=== PATIENT | male | born 1950 | race Caucasian/White ===

== ENCOUNTER → 2020-03-26 12:00 | Outpatient (CLI) | payer OTHER, SELFPAY ==
[2020-03-26 13:09] LABS: Add Manual Diff / Slide Review NO; Basophils Absolute Auto 100 /uL (0-100); Basophils Percent Auto 1.2 % (0-2); Eosinophils Absolute Auto 200 /uL (0-450); Hematocrit 39.5 % (41-53); Hemoglobin 13.3 g/dL (13.5-17.5); Lymphocytes Absolute Auto 1200 /uL (1100-4500); Mean Corpuscular HGB Conc 33.7 % (30-36); Mean Corpuscular Hemoglobin 31.7 PG (26-34); Monocytes Absolute Auto 600 /uL (0-900); Monocytes Percent Auto 11.9 % (3-14); Neutrophils Absolute Auto 2500 /uL (1500-7000); Neutrophils Percent Auto 54.9 % (50-75); Platelet Count 165 X10^3/uL (150-400); Red Cell Distribution Width 13.6 % (11.6-14.8); White Blood Cell Count 4.6 X10^3/uL (4.5-11.0)
[2020-03-26 13:26] LABS: Carbon Dioxide 27 mmol/L (22-32); Chloride 109 mmol/L (98-107); HEMOLYSIS < 15 (0-50); Potassium 4.4 mmol/L (3.4-5.1); Sodium 141 mmol/L (137-145)
== END ==
PROVIDERS: Referring Provider Orthopaedic Surgery; Visit Provider Orthopaedic Surgery
DX: Z01.818 Encounter for other preprocedural examination (principal); Z01.812 Encounter for preprocedural laboratory examination
CPT/HCPCS: 36415; 80051; 85025; 93005

== ENCOUNTER → 2020-04-15 09:45 | Outpatient (CLI) | payer OTHER, SELFPAY ==
[2020-04-16 12:31] LABS: COVID19 Sendout Not Detected (Not Detect)
== END ==
PROVIDERS: Referring Provider Orthopaedic Surgery; Visit Provider Physician Assistant
DX: Z11.59 Encounter for screening for other viral diseases (principal)
CPT/HCPCS: 87635

== ENCOUNTER 2020-04-19 15:29 | Observation (INO) | payer OTHER, SELFPAY ==
[2020-04-06] MEDS: IBUPROFEN 400 MG TABLET PO (18:00)
[2020-04-11 08:45] VITALS: BMI 38.9
[2020-04-18] VITALS (14 sets, daily range): BP systolic 93–173; BP diastolic 57–99; PULSE 57–76; RESP 12–18; TEMP 36.1–37.5; O2SAT 94–99; BMI 37.8
--- NOTE | 2020-04-18 06:00 | DI.RAD.S_ITS ---
PROCEDURE: XR KNEE LT 1TO2V INDICATIONS: RIGHT TOTAL KNEE TECHNIQUE: To view(s) of the knee acquired. COMPARISON: [facility], CR, XR KNEE ARTHRITIC SERIES BI, 11/10/2018, 16:02. FINDINGS: Bones: Patient is status post knee joint arthroplasty. Hardware components are in expected positions. Visualized bony structures are intact. Soft tissues: Overlying postoperative changes are noted. IMPRESSION: Expected postsurgical change for right knee arthroplasty. Dictated by: Ifrah Wayne MD, PhD on 04/18/2020 at 17:00 Approved by: Ifrah Wayne MD, PhD on 04/18/2020 at 17:00
[2020-04-18] MEDS: CELECOXIB 200 MG CAPSULE PO (06:46)
[2020-04-18] MEDS: ACETAMINOPHEN 325 MG TABLET 975 MG PO (06:46)
[2020-04-18] MEDS: PREGABALIN 75 MG CAPSULE PO (06:46)
[2020-04-18] MEDS: LACTATED RINGERS 1,000 ML 42 ML IV ×2 (07:35→09:08)
--- NOTE | 2020-04-18 07:35 | P.OP_ITS ---
Operative Date/Time/Diagnoses Date of procedure: 04/18/20 Time of procedure: 10:02 Pre-op diagnosis: Right knee osteoarthritis Post-op diagnosis: same Procedure & Clinicians Procedure: Right total knee arthroplasty Same procedure as scheduled: Yes Indications: The patient presents today for total knee arthroplasty after failure of conservative treatment. The nature of the procedure including the risks and benefits, alternatives, postoperative course and expected outcome were discussed and all questions answered. Consent was obtained. Operative site confirmed and marked. Surgeon: Cesar Ramirez Air Purifier Servicer: Mumtaz Terry Anesthesia Type: General and Local Operative Notes Findings: A +0 femoral cut was made. The initial femoral cut was 10 mm off the less affected medial side. The knee was still tight in flexion and extension so no other 2 mm of bone was cut. This gave nice balance with just slight tightness laterally. Lateral tightness was corrected by releasing the lateral capsule in a pie crust technique with a 15 blade. The knee went into full extension and flexed beyond 120? with good mediolateral stability. Despite confirming the cut multiple times with the cutting guide the femoral cut was not perfect. The final prosthesis did have a solid fit. The knee was held in extension with compression until the cement had fully cured. Closure Type: primary Specimen(s): none sent Prosthetic devices, grafts, tissues, transplants, or devices: Aguayo and Nephew Sruthi BCS: 5 femoral component, 5 tibial component, 9 mm BCS polyethylene tray and 32 mm round patella Applied: implant(s) Estimated Blood Loss (mL): 5 Blood products transfused: none Tourniquet time (min): 85 Procedure in detail: The patient was taken to the operative suite and placed under anesthesia. The patient was given prophylactic antibiotics prior to surgery. The patient was also given tranexamic acid, 1 g, just prior to surgery for postoperative hemostasis. The lateral knee was prepped and the joint injected with 20 mL of 1% Lidocaine with epinephrine. The knee was then prepped and draped in usual sterile fashion. The leg was exsanguinated with an Esmarch dressing and the tourniquet raised to 275 torr. A 15 cm anterior incision was made. Next a medial trivector arthrotomy was made. The extensor mechanism was marked to ensure accurate repair. Initial exposing dissection was carried out medially and laterally. The knee was then flexed and the intramedullary femoral guide diego placed. The distal femoral cut was made in 6? of valgus at the +0 position. The femoral size was measured and the appropriate cutting block was then placed and the anterior, posterior and chamfer cuts made. The intramedullary tibial alignment diego was then placed. The guide was set to remove approximately 10 mm from the less affected medial side. The proximal tibial cut was then made with an oscillating saw. All meniscus and bony debris was then removed. Posterior femoral osteophytes removed with a curved osteotome. Flexion extension gaps were checked. The knee was tight in both flexion extension. Another 2 mm of tibia was cut which corrected this. There was still some slight tightness laterally which was corrected by releasing the lateral capsule in a pie crust technique with a 15 blade.. The soft tissues were then injected with a combination of 20 mL of half percent Marcaine with epinephrine and 20 mL of Exparel. The trial components were then placed. The knee was then extended and the patellar thickness was measured and a cut made removing approximately 9 mm of bone. The patella was then sized and drilled. Some excess lateral bone was excised and the patellofemoral ligament released. The knee went into full extension and flexion beyond 120?. There was excellent medial-lateral balance throughout motion. Patellar tracking was excellent. The trial components were removed and the knee was cleansed with Pulsavac irrigation and dried. The final components were cemented with high viscosity vacuum mixed bone cement with antibiotics. The joint was filled with a dilute Betadine solution. The knee was held in extension and the patellar clamped until the cement was adequately cured. The knee was then irrigated. The extensor mechanism was closed with 5 interrupted #1 Vicryl sutures and a running Quill suture at approximately 90 degrees of flexion. The joint was then injected with a combination of 1 g of tranexamic acid and 20 mL of quarter percent Marcaine with epinephrine. The subcutaneous tissue was closed with 2 0 Vicryl. The skin was closed with absorbable subcuticular sutures and surgical adhesive. An Aquacel dressing and Ajay wrap were then applied. The patient tolerated the procedure well and was returned to recovery room in good condition. Complications: none Post-operative Condition: stable Disposition: PACU Plan for aftercare: [facility] Protocol.
--- NOTE | 2020-04-18 07:35 | PM.PREOP ---
Pre-operative Note COVID-19 COVID-19 status: Negative Result date/Date tested (Pos, Neg/Pending): 04/16/20 Interval Note History & Physical reviewed/Exam performed by Physician: Yes Changes to H&P: No
[2020-04-18] MEDS: fentaNYL 100 MCG/2 ML INJ 50 MCG IV ×2 (07:41→07:43)
[2020-04-18] MEDS: MIDAZOLAM 2 MG/2 ML VIAL IV ×2 (07:41→07:43)
[2020-04-18] MEDS: CEFAZOLIN 2 GM/100 ML FROZ.PIGGY IV (07:50)
--- NOTE | 2020-04-18 07:55 | SUR.PREOP ---
Block start time [0741] . Monitoring initiated and maintained throughout procedure. Oxygen and medications given per anesthesiologist instructions. Patient remained stable throughout procedure, no adverse reactions noted. Block end time [0746]. Pt at bedside throughout procedure. pt resting with eyes closed, easily arousable to voice when spoken to. pt transferred into the OR by QUALITY CONTROL INSPECTOR HEADING at completion of block, VSS.
--- NOTE | 2020-04-18 08:28 | SUR.OPER ---
Supine on padded OR bed. Pillow under head, arms secured on padded armboards <90 degree abduction. Safety belt across torso. Non-operative leg secured with tape over blanket over lower leg. Operative leg secured in DeMayo/Gonzalo positioner. Foam padded brace at thigh of operative leg.
[2020-04-18] MEDS: LIDOCAINE 1% W/EPI 20 ML INJ (08:36)
[2020-04-18] MEDS: BUPIVACAINE 0.25% W/ EPI (PF) 20 ML, TRANEXAMIC ACID 1,000 MG, SODIUM CHLORIDE 0.9% 10 ML INJ (08:37)
[2020-04-18] MEDS: BUPIVACAINE 0.25% W/ EPI (PF) 40 ML, BUPIVACAINE LIPOSOME 266 MG, SODIUM CHLORIDE 0.9% ... INJ (08:39)
--- NOTE | 2020-04-18 10:15 | SUR.PHASEI ---
Received to PACU after spinal anesthesia. Report received from MOON Byrd and anesthesiologist.
[2020-04-18] MEDS: LACTATED RINGERS 1,000 ML 100 ML IV ×2 (10:59→20:49)
[2020-04-18] MEDS: OXYCODONE IR 5 MG TABLET PO ×4 (11:06→22:32)
--- NOTE | 2020-04-18 11:34 | SUR.PHASEI ---
Pt transferred to [facility]. Received in room by MOON Greene. Bedside handoff done.
--- NOTE | 2020-04-18 14:40 | PT.IIE ---
Current Diagnoses Unilateral primary osteoarthritis, left knee (04/18/20) Surgery Performed Operation Date: 04/18/20 07:45 Actual Procedures p Total Knee Arthroplasty(Right) - Cesar Ramirez MD Surgical History (Last Updated 04/11/20 @ 09:22 by Darlene Beebe, RN) History of colonoscopy (Acute) History of esophagogastroduodenoscopy (EGD) (Acute) No history of previous surgery (Acute) Medical History (Last Updated 04/11/20 @ 09:22 by Darlene Beebe RN) Caputo's esophagus (Acute) Easy bruisability (Acute) GERD (gastroesophageal reflux disease) (Acute) Gout (Acute) Hearing impaired (Acute) HTN (hypertension) (Acute) JIA on CPAP (Acute) Psoriasis (Acute) Physical Therapy Inpatient Evaluation/Re-Eval M1 PT/OT-IP Prior Functional Status Start: 04/18/20 15:31 Freq: NEEDED Status: Active Protocol: Document 04/18/20 14:40 AB (Rec: 04/18/20 15:43 AB [id number]) Medical Review Prior Functional Status Medical History Reviewed Yes Communication able to make needs known Mobility and Gait pt stated that he is independent with all mobilities and ambulation without AD Social History Household Members spouse Living Arrangements House Number of Floors (Floors) Two Floors Number of Stairs To Enter/Railing? 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 PT-IP Current Condition Start: 04/18/20 15:31 Freq: NEEDED Status: Active Protocol: Document 04/18/20 14:40 AB (Rec: 04/18/20 15:43 AB [email or web address]) Physical Therapy Current Condition Current Condition Evaluation Date 04/18/20 Treatment Diagnosis s/p R TKA; difficulty in walking Onset Date 04/18/20 Weight Bearing Status Weight Bearing Status Weight Bear as Tolerated Allowed Weight Bearing Amount (enter % WBAT RLE or #) (%) M3 PT-IP Subjective Start: 04/18/20 15:31 Freq: NEEDED Status: Active Protocol: Document 04/18/20 14:40 AB (Rec: 04/18/20 15:43 [email or web address]) Subjective Physical Therapy Visit Type Type Initial Evaluation Visit Start Time 14:40 Visit Stop Time 15:27 Total Visit Minutes 47 Number of REFLECTOR DRILLER AND DEBURRER Visits 0 Physical Therapy Visit Comments Patient Comments pt is agreeable to do PT Therapy Pain Assessment Pain When Pain Assessed At Rest Pain Present Pain Present Pain Reported Location Right Knee Intensity 3 Scale Used Numeric (0 - 10) Pain Management Techniques Apply Cold,Modification of Treatment,Re-positioning, Timing of Activity with Medications M4 PT-IP Mobility and Gait Start: 04/18/20 15:31 Freq: NEEDED Status: Active Protocol: Document 04/18/20 14:40 AB (Rec: 04/18/20 15:43 [email or web address]) PT-Bed Mobility Assessment Supine to Sit Supine to Sit Standby Assistance,Bedrails Sit to Supine Sit to Supine Standby Assistance Scooting Scooting to Edge of Bed Standby Assistance PT-Transfer Assessment Sit to and From Stand Sit to and from Stand Minimal Assistance,1 Person Assistance,Use of Upper Extremities Equipment Transfer Assistive Device Gait Belt,Front Wheeled Walker Orthotic/Prosthetic Devices or Brace: No Comments Mobility Comments BP in supine: 141/78. completed supine to sit SBA with use of bed rail. pt was able to sit on EOB SBA. completed sit to stand min A and cues. ambulated in room ~ 40 ft using FWW min to mod A and cues for quads activation on RLE. slight R knee buckling during ambulation. pt requested to go back to bed afterwards. completed sit to supine SBA. positioned in bed. call light and table placed within reach. Gait Assessment Gait Gait Assistance Required: Minimum Assistance,Moderate Assistance Distance (Feet) 40 Able to Maintain Weight Bearing Status Yes During Gait Assistive Devices Assistive Device Gait Belt,Front Wheeled Walker Orthotic/Prosthetic Devices or Brace: No Gait Deviations General Gait Pattern Antalgic,Decreased Stride Length,Decreased Feet Clearance,Step-to Gait Factors Limiting Gait Function Factors Limiting Gait Function Decreased Activity Tolerance, Decreased Strength,Limited Range of Motion,Pain,Poor Balance,Poor Safety Awareness PT-Balance Assessment Sitting Balance and Reactions Static Sitting Balance Ability Good Dynamic Sitting Balance Ability Good Standing Balance and Reactions Static Standing Balance Ability Fair Dynamic Standing Balance Ability Fair Device Used FWW M5 PT-IP Objective Assessments Start: 04/18/20 15:31 Freq: NEEDED Status: Active Protocol: Document 04/18/20 14:40 AB (Rec: 04/18/20 15:43 AB [id number]) Orientation Orientation/Cognition Level of Alertness Alert Orientation Name,Age,Birthday,Month,Date, Year,Day of Week,Place, Situation Language Function Ability No Deficits Noted Safety Awareness Understands Safety Issues Memory Description No Deficits Noted Gross Range of Motion Lower Extremity ROM Impairments R knee flexion: ~ 50 deg R knee extension: 10 deg less to neutral Strength Lower Extremity Strength Assessment Right Impaired Hip 4-/5 Knee 3+/5 Coordination Assessment Gross Coordination Gross Coordination WNL Sensation Assessment Sensation Gross Sensation WNL Muscle Tone Muscle Tone WNL Yes M6 PT-IP Treatment Start: 04/18/20 15:31 Freq: NEEDED Status: Active Protocol: Document 04/18/20 14:40 AB (Rec: 04/18/20 15:43 AB [email or web address]) Physical Therapy Treatment Exercises Exercises Heel Slides Education Education Provided Precautions,Weight Bearing Status,Post-Op Packet,Safety M7 PT-IP Assessment and Plan Start: 04/18/20 15:31 Freq: NEEDED Status: Active Protocol: Document 04/18/20 14:40 AB (Rec: 04/18/20 15:43 AB [email or web address]) PT Summary Assessment and Plan Potential Rehabilitation Potential Good Status of Condition at Evaluation Stable Summary Impairments Pain,ROM,Strength,Balance,Bed Mobility,Transfers,Gait, Activity Tolerance Assessment Summary pt requiring min to mod A with ambulation using FWW and with slight R knee buckling during ambulation. pt plans to go home with spouse to assist. will conduct caregiver training when appropriate. will also have to complete stair climbing training prior to d/c. pt stated that he is set up for outpt PT. Goals Bed Mobility Goal Standby Assistance Transfer Goal Standby Assistance,Front Wheeled Walker Gait Goal Standby Assistance,Front Wheel Walker Gait Distance 150 Other Goals up/down 7 steps L rail ascending + 7 steps B rails SBA Days to Meet Goals 5 Frequency of Treatment Frequency Of Treatment Twice a Day Treatment Plan Physical Therapy Treatment Plan Bed Mobility Training,Transfer Training,Gait Training, Therapeutic Exercise,Balance Retraining,Post Op Education, Discharge Planning,Hot or Cold Pack,Neuromuscular Re-ed, Coordination Retraining,Manual Therapy Other Recommendations and Next Treatment ambulation, caregiver training Focus , stair climbing training Recommendations To Nursing Amount of Assist Needed 1 Person Assist Discharge Recommendations PT Discharge Recommendations Home with Assistance, Outpatient PT Transportation Needs at Discharge Private Vehicle
[2020-04-18] MEDS: ACETAMINOPHEN 325 MG TABLET 650 MG PO ×2 (15:17→20:45)
[2020-04-18] MEDS: IBUPROFEN 400 MG TABLET PO ×2 (15:18→21:02)
[2020-04-18] MEDS: CEFAZOLIN VIAL 3 GM in SODIUM CHLORIDE 0.9% 100 ML 200 ML IV (19:19)
[2020-04-18] MEDS: DOCUSATE 100 MG CAPSULE PO (20:45)
[2020-04-18] MEDS: ASPIRIN EC 81 MG TABLET PO (20:58)
--- NOTE | 2020-04-18 21:24 | PC.NURSE ---
Pt stable post op course. Lungs clear, SpO2 97% RA Surgical right knee dsg CDI CMS ++ MEd x 1 tjis shift for discomfort w/good relief. Using Cpap IVF LR infusing into left wrist @ 100cc/hr via pump w/o incidence. Call light w/in reach, bed alarm on for pt safety. Continue w/plan of care.
[2020-04-19] VITALS (7 sets, daily range): BP systolic 129–155; BP diastolic 59–89; PULSE 75–84; RESP 12–19; TEMP 36.9–38.3; O2SAT 93–96
[2020-04-19] MEDS: IBUPROFEN 400 MG TABLET PO ×5 (00:26→21:51)
[2020-04-19] MEDS: CEFAZOLIN VIAL 3 GM in SODIUM CHLORIDE 0.9% 100 ML 200 ML IV (00:27)
[2020-04-19] MEDS: OXYCODONE IR 5 MG TABLET PO (02:22)
[2020-04-19] MEDS: OXYCODONE IR 10 MG TABLET PO ×3 (05:12→12:07)
[2020-04-19 05:43] LABS: Hematocrit 38.1 % (41-53); Hemoglobin 12.4 g/dL (13.5-17.5)
--- NOTE | 2020-04-19 07:48 | PM.PN.1 ---
Subjective Subjective Date Patient Seen: 04/19/20 Time Patient Seen: 07:48 Interval history: Patient is POD#1 s/p R TKA with Dr. Ramirez. Pain has been controlled with Oxycodone. He has mobilized about the room with PT. Does have stairs to enter home. His is available as professional nursing assistant. Voiding appropriately. Tolerating a diet. No complaints. Exam Vital Signs (past 8 hours): - 04/19/20 00:30 04/19/20 06:00 04/19/20 06:37 Temperature 99.0 F 100.9 F H 98.8 F Pulse Rate 75 75 Respiratory Rate 18 12 Blood Pressure 152/89 H 155/72 H Pulse Oximetry 96 96 Oxygen Delivery Method Room Air,CPAP Oxygen Flow Rate 0 Narrative Exam Narrative: 69 year old male resting in bed alert and oriented. Using CPAP. Dressing in place over right knee is CDI. 5/5 distal extremity. Calves are soft, nontender. Palpable pedal pulse. Objective Labs Result Diagrams: 04/19/20 05:35 Labs: Laboratory Results - last 24 hr 04/19/20 05:35 Hgb 12.4 L Hct 38.1 L Assessment & Plan Assessment & Plan narrative: Patient doing well postoperatively. Continue to work with PT today, complete stair training. ASA 81mg BID and SCDs for DVT prophylaxis. Continue present pain control, script for Oxycodone provided for discharge. Discharge to home later today pending PT.
[2020-04-19] MEDS: ACETAMINOPHEN 325 MG TABLET 650 MG PO ×3 (09:00→21:52)
[2020-04-19] MEDS: DOCUSATE 100 MG CAPSULE PO ×2 (09:01→21:52)
[2020-04-19] MEDS: PANTOPRAZOLE 40 MG TABLET PO (09:01)
[2020-04-19] MEDS: ASPIRIN EC 81 MG TABLET PO ×2 (09:01→21:52)
[2020-04-19] MEDS: LOSARTAN 50 MG TABLET 100 MG PO (09:01)
[2020-04-19] MEDS: AMLODIPINE 5 MG TABLET PO (09:01)
[2020-04-19] MEDS: allopurinoL 100 MG TABLET 200 MG PO (09:02)
[2020-04-19] MEDS: hydrOXYzine pamoate 25 MG CAPSULE PO (10:56)
--- NOTE | 2020-04-19 10:57 | CM.DANOTE ---
DCP: Case received, EMR reviewed and met with patient. Introduced self and role. Was able to obtain some information from patient regarding his baseline activity status prior to surgery, and living situation. DCP assessment completed with information currently available. Patient is a 69 year old male who admitted yesterday morning to the care of the orthopedic team. PCP: Patient could not remember his name, but does have one. Payer: confirmed: [employer]. Patient came to the hospital for a surgical procedure. He had left total knee arthroplasty. Patient has history of osteoarthritis. Met with patient in his room. He was sitting in his chair next to his bed with his leg elevated. Stated he is supposed to go home today, but is concerned, for he is having increased pain. His , Delmy, is on her way here. Patient resides in [place] with his spouse, Delmy, who will be assisting him when he goes home. Patient is independent at baseline, has been driving. He does have a PCP in his area, but was unsure of his name. P: DCP to continue to follow. He does have discharge orders for today, but also having increased pain. The plan is for home with outpatient P.T. He should be working with P.T. again. Duyen Sterling RN/Bingo Usher
--- NOTE | 2020-04-19 12:03 | PT.IPTN ---
Current Diagnoses Unilateral primary osteoarthritis, left knee (04/18/20) Surgery Performed Operation Date: 04/18/20 07:45 Actual Procedures p Total Knee Arthroplasty(Right) - Cesar Ramirez MD Physical Therapy Treatment Note M2 PT-IP Current Condition Start: 04/18/20 15:31 Freq: NEEDED Status: Active Protocol: Document 04/18/20 14:40 AB (Rec: 04/18/20 15:43 AB [email or web address]) Physical Therapy Current Condition Current Condition Evaluation Date 04/18/20 Treatment Diagnosis s/p R TKA; difficulty in walking Onset Date 04/18/20 Weight Bearing Status Weight Bearing Status Weight Bear as Tolerated Allowed Weight Bearing Amount (enter % WBAT RLE or #) (%) M3 PT-IP Subjective Start: 04/18/20 15:31 Freq: NEEDED Status: Active Protocol: Document 04/19/20 11:48 KS (Rec: 04/19/20 12:54 KS [id number]) Subjective Physical Therapy Visit Type Type Treatment Note Visit Start Time 11:48 Visit Stop Time 12:03 Total Visit Minutes 15 Number of ORACLE FINANCIAL APPLICATION DEVELOPER Visits 1 Physical Therapy Visit Comments Patient Comments Pts present during treatment. Therapy Pain Assessment Pain When Pain Assessed At Rest Pain Present Pain Present Pain Reported Location Right Knee Scale Used not quantified Pain Behaviors Calling Out,Facial Grimacing, Guarding,Holding Area, Restlessness,Wincing Pain Management Techniques Apply Cold,Elevation, Modification of Treatment,Re- positioning M4 PT-IP Mobility and Gait Start: 04/18/20 15:31 Freq: NEEDED Status: Active Protocol: Document 04/19/20 11:48 KS (Rec: 04/19/20 12:54 KS [id number]) PT-Transfer Assessment Comments Mobility Comments Pt reclined in chair w/ in room upon arrival from therapy. Reviewed LE strengthening exercises including ankle pumps, quad sets, and heel slides which pt states he has been trying to complete in bed. Upon lowering chair from reclined position, pt called out in pain w/ knee flexion shouting put it back up! referring to his RLE in reclined position. Pt repositioned comfortably w/ pillow beneath knee. Provided pt education on positioning, weight bearing, and ROM. Pt stated he is unable to stand or walk at this time d/t pain. Gait Assessment Comments Gait Comments Pt unable to tolerate at this time d/t pain. M5 PT-IP Objective Assessments Start: 04/18/20 15:31 Freq: NEEDED Status: Active Protocol: Document 04/18/20 14:40 AB (Rec: 04/18/20 15:43 AB [email or web address]) Orientation Orientation/Cognition Level of Alertness Alert Orientation Name,Age,Birthday,Month,Date, Year,Day of Week,Place, Situation Language Function Ability No Deficits Noted Safety Awareness Understands Safety Issues Memory Description No Deficits Noted Gross Range of Motion Lower Extremity ROM Impairments R knee flexion: ~ 50 deg R knee extension: 10 deg less to neutral Strength Lower Extremity Strength Assessment Right Impaired Hip 4-/5 Knee 3+/5 Coordination Assessment Gross Coordination Gross Coordination WNL Sensation Assessment Sensation Gross Sensation WNL Muscle Tone Muscle Tone WNL Yes M6 PT-IP Treatment Start: 04/18/20 15:31 Freq: NEEDED Status: Active Protocol: Document 04/19/20 11:48 KS (Rec: 04/19/20 12:54 KS [id number]) Physical Therapy Treatment Exercises Exercises Ankle Pumps,Gluteal Sets,Quad Sets,Heel Slides Education Education Provided Precautions,Weight Bearing Status,Post-Op Packet,Safety Other Treatments Other Treatment Performed Provided pt education on exercises, weight bearing, ROM , and positioning. M7 PT-IP Assessment and Plan Start: 04/18/20 15:31 Freq: NEEDED Status: Active Protocol: Document 04/19/20 11:48 KS (Rec: 04/19/20 12:54 KS [id number]) PT Summary Assessment and Plan Summary Impairments Pain,ROM,Strength,Balance,Bed Mobility,Transfers,Gait, Activity Tolerance Assessment Summary Pt limited by high amount of pain and only able to tolerate review of LE strengthening exercises. Pt called out in pain when RLE was slowly lowered from reclined position and immediately requested to have his RLE elevated again. Pt stated he is unable to stand or ambulate at this time . Provided pt education, spoke w/ RN regarding meds. Will try again this PM after pain meds. Pt will need to complete 4 steps w/ 1 rail and caregiver training prior to d/ c. Goals Bed Mobility Goal Standby Assistance Transfer Goal Standby Assistance,Front Wheeled Walker Gait Goal Standby Assistance,Front Wheel Walker Gait Distance 150 Other Goals up/down 7 steps L rail ascending + 7 steps B rails SBA Days to Meet Goals 5 Frequency of Treatment Frequency Of Treatment Twice a Day Treatment Plan Physical Therapy Treatment Plan Bed Mobility Training,Transfer Training,Gait Training, Therapeutic Exercise,Balance Retraining,Post Op Education, Discharge Planning,Hot or Cold Pack,Neuromuscular Re-ed, Coordination Retraining,Manual Therapy Other Recommendations and Next Treatment ambulation, caregiver training Focus , stair climbing training Recommendations To Nursing Amount of Assist Needed 1 Person Assist Discharge Recommendations PT Discharge Recommendations Home with Assistance,SNF Rehab ,Outpatient PT Transportation Needs at Discharge Private Vehicle
--- NOTE | 2020-04-19 13:19 | PT.IPTN ---
Current Diagnoses Unilateral primary osteoarthritis, left knee (04/18/20) Surgery Performed Operation Date: 04/18/20 07:45 Actual Procedures p Total Knee Arthroplasty(Right) - Cesar Ramirez MD Physical Therapy Treatment Note M2 PT-IP Current Condition Start: 04/18/20 15:31 Freq: NEEDED Status: Active Protocol: Document 04/18/20 14:40 AB (Rec: 04/18/20 15:43 AB [email or web address]) Physical Therapy Current Condition Current Condition Evaluation Date 04/18/20 Treatment Diagnosis s/p R TKA; difficulty in walking Onset Date 04/18/20 Weight Bearing Status Weight Bearing Status Weight Bear as Tolerated Allowed Weight Bearing Amount (enter % WBAT RLE or #) (%) M3 PT-IP Subjective Start: 04/18/20 15:31 Freq: NEEDED Status: Active Protocol: Document 04/19/20 13:03 KS (Rec: 04/19/20 14:21 KS [id number]) Subjective Physical Therapy Visit Type Type Treatment Note Visit Start Time 13:03 Visit Stop Time 13:19 Total Visit Minutes 16 Number of CHARGE WEIGHER Visits 2 Therapy Pain Assessment Pain When Pain Assessed At Rest Pain Present Pain Present Pain Reported Location Right Knee Intensity 5 Scale Used Numeric (0 - 10) Description Aching,Tightness,Throbbing Pain Behaviors Facial Grimacing,Guarding, Wincing Pain Management Techniques Apply Cold,Elevation, Modification of Treatment,Re- positioning,Timing of Activity with Medications M4 PT-IP Mobility and Gait Start: 04/18/20 15:31 Freq: NEEDED Status: Active Protocol: Document 04/19/20 13:03 KS (Rec: 04/19/20 14:21 KS [id number]) PT-Bed Mobility Assessment Sit to Supine Sit to Supine Minimal Assistance,1 Person Assistance,Head of Bed Elevated Scooting Scooting to Edge of Bed Standby Assistance PT-Transfer Assessment Sit to and From Stand Sit to and from Stand Minimal Assistance,1 Person Assistance,Use of Upper Extremities Equipment Transfer Assistive Device Gait Belt,Front Wheeled Walker Orthotic/Prosthetic Devices or Brace: No Transfers Transfer Destination Bed Transfer Ability Level of Assist Minimal Assistance Comments Mobility Comments Pt in chair upon arrival from therapy and pre-medicated. Pt SBA for scooting to EOC and Min A w/ cues for hand placement and sequencing for sit<>Stand w/ FWW. Pt then performed 30 seconds weight shifting prior to ~10 ft ambulation w/ FWW. Pt ambulated ~10 ft w/ FWW and Min A. Pt relied heavily on BUE to off-weight RLE d/t pain and reported increased pain and fatigue following ambulation. Pt sit<>sup w/ Min A and use of gait belt for RLE assistance into bed. PT was able to scoot up in bed SBA w/ cues and left in bed w/ pillow under ankle to facilitate knee extension and ice applied to knee. Pt left in bed w/ all needs in reach. Gait Assessment Gait Gait Assistance Required: Minimum Assistance Distance (Feet) 10 Able to Maintain Weight Bearing Status Yes During Gait Assistive Devices Assistive Device Gait Belt,Front Wheeled Walker Orthotic/Prosthetic Devices or Brace: No Gait Deviations General Gait Pattern Antalgic,Decreased Stride Length,Decreased Feet Clearance,Step-to Gait Factors Limiting Gait Function Factors Limiting Gait Function Decreased Activity Tolerance, Decreased Strength,Limited Range of Motion,Pain,Poor Balance,Poor Safety Awareness Comments Gait Comments Please see mobility section for details. PT-Balance Assessment Sitting Balance and Reactions Static Sitting Balance Ability Good Dynamic Sitting Balance Ability Good Standing Balance and Reactions Static Standing Balance Ability Fair Dynamic Standing Balance Ability Fair Device Used FWW M5 PT-IP Objective Assessments Start: 04/18/20 15:31 Freq: NEEDED Status: Active Protocol: Document 04/18/20 14:40 AB (Rec: 04/18/20 15:43 AB [email or web address]) Orientation Orientation/Cognition Level of Alertness Alert Orientation Name,Age,Birthday,Month,Date, Year,Day of Week,Place, Situation Language Function Ability No Deficits Noted Safety Awareness Understands Safety Issues Memory Description No Deficits Noted Gross Range of Motion Lower Extremity ROM Impairments R knee flexion: ~ 50 deg R knee extension: 10 deg less to neutral Strength Lower Extremity Strength Assessment Right Impaired Hip 4-/5 Knee 3+/5 Coordination Assessment Gross Coordination Gross Coordination WNL Sensation Assessment Sensation Gross Sensation WNL Muscle Tone Muscle Tone WNL Yes M6 PT-IP Treatment Start: 04/18/20 15:31 Freq: NEEDED Status: Active Protocol: Document 04/19/20 13:03 KS (Rec: 04/19/20 14:21 KS [id number]) Physical Therapy Treatment Education Education Provided Precautions,Weight Bearing Status,Post-Op Packet,Safety Other Treatments Other Treatment Performed Educted pt on alternating pillow positionin gofr knee flex/ext. M7 PT-IP Assessment and Plan Start: 04/18/20 15:31 Freq: NEEDED Status: Active Protocol: Document 04/19/20 13:03 KS (Rec: 04/19/20 14:21 KS [id number]) PT Summary Assessment and Plan Summary Impairments Pain,ROM,Strength,Balance,Bed Mobility,Transfers,Gait, Activity Tolerance Assessment Summary Pt continues to be limited by pain, however showed slight improvement w/ mobility and ambulation this PM after pain medication. Min A for sit<> stand, ~10 ft ambulation w/ FWW, and sit<>sup w/ gait belt for RLE assist into bed. Pt relied heavily on BUE to offweight RLE while ambulating and c/o increaed pain. Pt states he will be sleeping on couch downstairs. He will need to complete 4 steps w/ 1 rail and caregiver training prior to going home w/ support, however d/c plan depending on progress. Goals Bed Mobility Goal Standby Assistance Transfer Goal Standby Assistance,Front Wheeled Walker Gait Goal Standby Assistance,Front Wheel Walker Gait Distance 150 Other Goals up/down 7 steps L rail ascending + 7 steps B rails SBA Days to Meet Goals 5 Frequency of Treatment Frequency Of Treatment Twice a Day Treatment Plan Physical Therapy Treatment Plan Bed Mobility Training,Transfer Training,Gait Training, Therapeutic Exercise,Balance Retraining,Post Op Education, Discharge Planning,Hot or Cold Pack,Neuromuscular Re-ed, Coordination Retraining,Manual Therapy Other Recommendations and Next Treatment ambulation, caregiver training Focus , stair climbing training Recommendations To Nursing Amount of Assist Needed 1 Person Assist Discharge Recommendations PT Discharge Recommendations Home with Assistance,SNF Rehab ,Outpatient PT Transportation Needs at Discharge Private Vehicle
--- NOTE | 2020-04-19 13:44 | PC.NURSE ---
Patient did not mobilize well with PT this afternoon, he states when he is trying to bend his knee or stand on it the pain is too severe. Patient states the pain medication seems to only be working now while he is at rest. He is not sure if the addition of the vistaril today was helpful. Message left for Teresa OLIVAREZ, awaiting return call.
--- NOTE | 2020-04-19 14:02 | PC.NURSE ---
Yolanda OLIVAREZ update on patient's difficulty mobilizing. Order to increase oxycodone to 15mg and vistaril to 50mg to see if better pain control can be obtained. Patient states pain relief is present when at rest, but increased in the knee when he tries to bend it or stand. Order to try oral dilaudid as ordered prn if increased dosing of oxycodone is not effective. Updated patient on plan. Patient is laying in bed with fresh ice on knee, comfortable at this time. Call light within reach. Continue to monitor.
[2020-04-19] MEDS: OXYCODONE IR 10 MG TABLET 15 MG PO ×2 (16:33→21:55)
--- NOTE | 2020-04-19 23:32 | PC.NURSE ---
pt was able to ambulate to the bathroom with 15mg of oxycodone without any help. He was SBA and able to get in and out of bed without help.
[2020-04-20 00:40] VITALS: BP 141/73; PULSE 76; RESP 16; TEMP 37.3; O2SAT 93
[2020-04-20] MEDS: IBUPROFEN 400 MG TABLET PO ×4 (00:44→12:29)
[2020-04-20] MEDS: polyethylene glycoL 3350 17 GM POWD.PACK PO ×2 (00:45→09:14)
[2020-04-20] MEDS: OXYCODONE IR 10 MG TABLET 15 MG PO ×3 (01:53→16:29)
[2020-04-20 04:55] VITALS: PULSE 91; RESP 16; TEMP 36.8; O2SAT 98
[2020-04-20] MEDS: OXYCODONE IR 5 MG TABLET PO ×2 (06:04→09:14)
--- NOTE | 2020-04-20 07:37 | PM.DS.1 ---
History of Present Illness History of Present Illness Date Patient Seen: 04/20/20 Time Patient Seen: 07:38 Chief complaint: Left Total Knee Arthroplasty *OPB* Narrative: Indications: The patient presents today for total knee arthroplasty after failure of conservative treatment. The nature of the procedure including the risks and benefits, alternatives, postoperative course and expected outcome were discussed and all questions answered. Consent was obtained. Operative site confirmed and marked. Discharge Providers Provider Date of admission: 04/19/20 15:29 Discharge Date: 04/20/20 Consults: 04/18/20 10:42 Consult to Discharge Planning Routine Comment: Consult to Physical Therapy Evaluate & Treat Comment: Physician Instructions: postop TKA protocol Consult to Respiratory Therapy Evaluate & Treat Comment: Physician Instructions: Evaluate and treat Discharge provider: Sue Villavicencio PA-C Summary Hospital Course Discharge Diagnosis: s/p R TKA Gout Hospital Course: Vishnu was admitted for a right total knee arthroplasty with Dr. Ramirez. Patient was ready to DC home on POD #2. He was eating and voiding without difficulty or assistance. He worked with PT throughout his stay. Pain was well controlled with Oxycodone. He will DC home with his . Exam Vital Signs (past 8 hours): - 04/20/20 00:40 04/20/20 04:55 Temperature 99.1 F 98.2 F Pulse Rate 76 91 H Respiratory Rate 16 16 Blood Pressure 141/73 H Pulse Oximetry 93 98 Oxygen Delivery Method CPAP Oxygen Flow Rate 0 Narrative Exam Narrative: Patient lying in bed in NAD. He is alert and oriented X3. Calves are soft, compressible, and nontender bilaterally. SCDs on and functioning. Dressing on right knee is CDI. No complaints this morning. Objective Labs Result Diagrams: 04/19/20 05:35 Discharge Plan Discharge Plan Patient Disposition: Home Provider Discharge Comment: Home this afternoon after cleared by PT Discharge orders & Medications Prescriptions: New acetaminophen 325 mg Tablet 650 mg PO TID Qty: 40 RF: 0 aspirin 81 mg Tablet,Delayed Release (Dr/Ec) 81 mg PO BID Qty: 40 RF: 0 ibuprofen 400 mg Tablet 400 mg PO Q4HR Qty: 60 RF: 0 docusate sodium [DOK] 100 mg Capsule 100 mg PO BID Qty: 40 RF: 0 oxycodone 5 mg Tablet 5 mg PO Q3HR PRN (Reason: Pain, Moderate (4-6)) Qty: 60 RF: 0 Continued amlodipine 5 mg Tablet 5 mg PO DAILY RF: 0 allopurinol 100 mg Tablet 200 mg PO DAILY RF: 0 omeprazole 40 mg Capsule,Delayed Release(Dr/Ec) 40 mg PO DAILY RF: 0 losartan 100 mg Tablet 100 mg PO DAILY RF: 0 magnesium oxide 400 mg magnesium Capsule 400 mg PO DAILY RF: 0 Multi Complete with Iron 18-400 mg-mcg Tablet 1 tab PO DAILY RF: 0 Discontinued naproxen 250 mg Tablet 250 mg PO DAILY RF: 0 aspirin [Aspirin Low Dose] 81 mg Tablet,Delayed Release (Dr/Ec) 81 mg PO DAILY RF: 0 Follow up/Referrals: Cesar Ramirez MD [Physician] - (In 2 weeks as scheduled) Diet/Activity/Treatments Diet: Diet as Tolerated Activity: Frequent short walks, heel slides, ankle pumps Cold/Heat Therapy: Ice packs as needed. Allow skin to return to room temp between icing. Skin/Wound/Dressing Care Report to your healthcare provider any signs of infection, such as:: chills, fever, night sweats, unusual drainage and unusual redness Dressing: Dressing should remain in place until your 2 week postop. Call the office if dressing becomes saturated. Visit Report/Discharge Packet Instructions: DI for Knee Replacement, DI for Prescription Opioid Use Discharge Data Attending Provider: Cesar Ramirez Admit Date/Time: 04/19/20 15:29
[2020-04-20 08:00] VITALS: BP 121/71; PULSE 71; RESP 16; TEMP 37.5; O2SAT 95
[2020-04-20] MEDS: ASPIRIN EC 81 MG TABLET PO (09:13)
[2020-04-20] MEDS: PANTOPRAZOLE 40 MG TABLET PO (09:13)
[2020-04-20] MEDS: DOCUSATE 100 MG CAPSULE PO (09:13)
[2020-04-20] MEDS: ACETAMINOPHEN 325 MG TABLET 650 MG PO ×2 (09:13→16:25)
[2020-04-20 09:17] VITALS: BP 126/71; PULSE 68
[2020-04-20] MEDS: AMLODIPINE 5 MG TABLET PO (09:17)
[2020-04-20] MEDS: LOSARTAN 50 MG TABLET 100 MG PO (09:17)
[2020-04-20] MEDS: allopurinoL 100 MG TABLET 200 MG PO (09:17)
--- NOTE | 2020-04-20 09:17 | CM.DPC ---
Addendum entered by Karina Alston LPN 04/20/20 15:32: Was just updated by PT Mak and PT student, both wondering about HH as pt has 2 steps to entry. He is managing steps but they expressed concern that he may have trouble getting to outpt PT. HH has not been ordered by the orthopedic team. Checked in now with pt. He is found up, dressing and in w/c. Waiting for his son and to take him home. He states he is all set up for OUTPT PT. He said be taken to PT sessions by his son and I have all kinds of other people around me to help if need be.. Home today with OUTPT PT as planned. Original Note: DCP: continued: case received and d/c to home order noted. EMR reviewed and checked in with pt. Pt stated he does not know if he will be leaving today. I am supposed to work with PT on stairs. Confirmed he has his to assist him at home and that she has been part of caregiver training thus far. Will follow prn. Expect at this point: home today as per ordered by ORTHO JUANIS.
[2020-04-20 12:38] VITALS: BP 118/72; PULSE 84; RESP 18; TEMP 36.8; O2SAT 96
--- NOTE | 2020-04-20 13:10 | PT.IPTN ---
Current Diagnoses Unilateral primary osteoarthritis, left knee (04/19/20) Surgery Performed Operation Date: 04/18/20 07:45 Actual Procedures p Total Knee Arthroplasty(Right) - Cesar Ramirez MD Physical Therapy Treatment Note M2 PT-IP Current Condition Start: 04/18/20 15:31 Freq: NEEDED Status: Active Protocol: Document 04/18/20 14:40 AB (Rec: 04/18/20 15:43 AB [id number]) Physical Therapy Current Condition Current Condition Evaluation Date 04/18/20 Treatment Diagnosis s/p R TKA; difficulty in walking Onset Date 04/18/20 Weight Bearing Status Weight Bearing Status Weight Bear as Tolerated Allowed Weight Bearing Amount (enter % WBAT RLE or #) (%) M3 PT-IP Subjective Start: 04/18/20 15:31 Freq: NEEDED Status: Active Protocol: Document 04/20/20 11:43 DE (Rec: 04/20/20 12:26 DE [id number]) Subjective Physical Therapy Visit Type Type Treatment Note Visit Start Time 09:23 Visit Stop Time 09:56 Total Visit Minutes 33 Number of PLUMBING TECHNICIAN Visits 0 Physical Therapy Visit Comments Patient Comments Pt is agreeable to do PT. Patient Goals To return home. Therapy Pain Assessment Pain When Pain Assessed At Rest Pain Present Pain Present Pain Reported M4 PT-IP Mobility and Gait Start: 04/18/20 15:31 Freq: NEEDED Status: Active Protocol: Document 04/20/20 11:43 DE (Rec: 04/20/20 12:26 DE [id number]) PT-Bed Mobility Assessment Supine to Sit Supine to Sit 1 Person Assistance Scooting Scooting to Edge of Bed Contact Guard Assistance PT-Transfer Assessment Sit to and From Stand Sit to and from Stand Contact Guard Assistance,Use of Upper Extremities Equipment Transfer Assistive Device Gait Belt,Front Wheeled Walker Orthotic/Prosthetic Devices or Brace: No Transfers Transfer Destination Chair Transfer Ability Level of Assist Contact Guard Assistance Comments Mobility Comments Pt was lying in bed as PT and SPT arrived. Pt completed supine to sit at EOB with min 1PA, requiring cues for placing L foot under the R foot to help pivot the RLE. Pt moved slowly d/t pain. At EOB , BP was 154/81 and pain was 5 /10. Pt then performed sit to stand with CGA and FWW, fully WB on the LLE in staggered stance with use of BUE to push off from the bed. Pt practiced weight shift exercise in standing but struggled to WB on RLE. Pt then amb ~150 total out to the hallway, to the stairs, and back to the room with CGA and FWW. Pt demonstrated labored breathing throughout the whole mobilization including bed mobility, transfer, and amb. Pt needed to take 2 standing breaks, one at ~30 ft and another at ~45 ft. Pt can hardly stand on RLE and relied heavily on BUE. Pt demonstrated step-to, antalgic gait pattern with decreased stride length. Pt had a tendency to stump his L foot on the ground to quickly avoid WB on RLE. Pt sat down in the chair when he got back to the room with CGA and use of BUE. BP in the chair was 107/66. Call light placed within reach . Gait Assessment Gait Gait Assistance Required: Minimum Assistance Distance (Feet) 150 Able to Maintain Weight Bearing Status Yes During Gait Assistive Devices Assistive Device Gait Belt,Front Wheeled Walker Orthotic/Prosthetic Devices or Brace: No Gait Deviations General Gait Pattern Antalgic,Decreased Stride Length,Decreased Feet Clearance,Step-to Gait Factors Limiting Gait Function Factors Limiting Gait Function Decreased Activity Tolerance, Decreased Strength,Limited Range of Motion,Pain,Poor Balance,Poor Safety Awareness Comments Gait Comments See mobility comments. PT-Balance Assessment Sitting Balance and Reactions Static Sitting Balance Ability Good Dynamic Sitting Balance Ability Good Standing Balance and Reactions Static Standing Balance Ability Fair Dynamic Standing Balance Ability Fair Device Used FWW M5 PT-IP Objective Assessments Start: 04/18/20 15:31 Freq: NEEDED Status: Active Protocol: Document 04/18/20 14:40 AB (Rec: 04/18/20 15:43 [id number]) Orientation Orientation/Cognition Level of Alertness Alert Orientation Name,Age,Birthday,Month,Date, Year,Day of Week,Place, Situation Language Function Ability No Deficits Noted Safety Awareness Understands Safety Issues Memory Description No Deficits Noted Gross Range of Motion Lower Extremity ROM Impairments R knee flexion: ~ 50 deg R knee extension: 10 deg less to neutral Strength Lower Extremity Strength Assessment Right Impaired Hip 4-/5 Knee 3+/5 Coordination Assessment Gross Coordination Gross Coordination WNL Sensation Assessment Sensation Gross Sensation WNL Muscle Tone Muscle Tone WNL Yes M6 PT-IP Treatment Start: 04/18/20 15:31 Freq: NEEDED Status: Active Protocol: Document 04/20/20 11:43 DE (Rec: 04/20/20 12:26 DE [id number]) Physical Therapy Treatment Exercises Exercises Ankle Pumps,Gluteal Sets,Quad Sets,Heel Slides Education Education Provided Precautions,Weight Bearing Status,Post-Op Packet,Safety M7 PT-IP Assessment and Plan Start: 04/18/20 15:31 Freq: NEEDED Status: Active Protocol: Document 04/20/20 11:43 DE (Rec: 04/20/20 12:26 DE [id number]) PT Summary Assessment and Plan Summary Impairments Pain,ROM,Strength,Balance,Bed Mobility,Transfers,Gait, Activity Tolerance Assessment Summary Pt continues to be limited by pain and lack of knee ROM. Pt was able to amb a longer distance. However, pt had very limited WB on his RLE during transfers and amb. Also, pt plans to sleep on the couch on 1st floor, which is lower than the bed and has soft surface. Pt is currently not safe to d/c home. Pt will have to perform stair climbing and sit to stand from chair in order to d/c home safely. Goals Bed Mobility Goal Standby Assistance Transfer Goal Standby Assistance,Front Wheeled Walker Gait Goal Standby Assistance,Front Wheel Walker Gait Distance 150 Other Goals up/down 7 steps L rail ascending + 7 steps B rails SBA Days to Meet Goals 5 Frequency of Treatment Frequency Of Treatment Twice a Day Treatment Plan Physical Therapy Treatment Plan Bed Mobility Training,Transfer Training,Gait Training, Therapeutic Exercise,Balance Retraining,Post Op Education, Discharge Planning,Hot or Cold Pack,Neuromuscular Re-ed, Coordination Retraining,Manual Therapy Other Recommendations and Next Treatment ambulation, caregiver training Focus , stair climbing training Recommendations To Nursing Amount of Assist Needed 1 Person Assist Discharge Recommendations PT Discharge Recommendations Home with Assistance,SNF Rehab ,Outpatient PT Transportation Needs at Discharge Private Vehicle This treatment note is written by MICHELINE Hurley. It has been reviewed and approved by Boy Gu ,PT
--- NOTE | 2020-04-20 15:23 | PC.NURSE ---
Day shift note: Patient cleared for discharge by PT post stair training. Discharge instructions, given to patient. Discussed importance of F//U with Ortho in 2 weeks, s/sx of infections, dressing care, and new medications. Patient verbalized understanding of discharge instructions. Awaiting for and son for arrival.
[2020-04-20 15:50] VITALS: BP 134/78; PULSE 86; RESP 18
--- NOTE | 2020-04-20 16:03 | PT.IPTN ---
Current Diagnoses Unilateral primary osteoarthritis, left knee (04/19/20) Surgery Performed Operation Date: 04/18/20 07:45 Actual Procedures p Total Knee Arthroplasty(Right) - Cesar Ramirez MD Physical Therapy Treatment Note M2 PT-IP Current Condition Start: 04/18/20 15:31 Freq: NEEDED Status: Active Protocol: Document 04/18/20 14:40 AB (Rec: 04/18/20 15:43 AB [id number]) Physical Therapy Current Condition Current Condition Evaluation Date 04/18/20 Treatment Diagnosis s/p R TKA; difficulty in walking Onset Date 04/18/20 Weight Bearing Status Weight Bearing Status Weight Bear as Tolerated Allowed Weight Bearing Amount (enter % WBAT RLE or #) (%) M3 PT-IP Subjective Start: 04/18/20 15:31 Freq: NEEDED Status: Active Protocol: Document 04/20/20 14:34 DE (Rec: 04/20/20 15:18 DE [id number]) Subjective Physical Therapy Visit Type Type Treatment Note Visit Start Time 14:10 Visit Stop Time 14:30 Total Visit Minutes 20 Notes SPT Cesar was present throughout the entire session. Number of LEGAL RECRUITER Visits 0 Physical Therapy Visit Comments Patient Comments I think I can do home safely Patient Goals To return home. Therapy Pain Assessment Pain When Pain Assessed At Rest Pain Present Pain Present Pain Reported M4 PT-IP Mobility and Gait Start: 04/18/20 15:31 Freq: NEEDED Status: Active Protocol: Document 04/20/20 14:34 DE (Rec: 04/20/20 15:18 DE [id number]) PT-Bed Mobility Assessment Supine to Sit Supine to Sit Standby Assistance Scooting Scooting to Edge of Bed Standby Assistance PT-Transfer Assessment Sit to and From Stand Sit to and from Stand Contact Guard Assistance,Use of Upper Extremities Equipment Transfer Assistive Device Gait Belt,Front Wheeled Walker Orthotic/Prosthetic Devices or Brace: No Transfers Transfer Destination Chair Transfer Ability Level of Assist Contact Guard Assistance Comments Mobility Comments Pt was sitting in the chair as PT arrived and SPT joined shortly after. Pt completed sit to marketing operations associate staggered stance with CGA, FWW, and use of BUE on the armrests. Pt had the most of WB through his LLE and BUE. Pt then amb 150 ft total out to the stairs and to his room with CGA and FWW. His gait demonstrated very slight improvement in his gait quality and speed. Pt still had significantly decreased WB on RLE and relied heavily on his BUE. Pt performed stair climbing up and down 3 steps x4. The first time, pt used B handrails and CGA. The second time, he used R handrail ascending and R handrail descending with L mod CHALK EXTRUDING MACHINE OPERATOR. Pt demonstrated unsteadiness in his RLE. The third and fourth time, pt used L handrail ascending and L handrail descending with R SPC and CGA. He was most stable using his SPC without any LOB. Pt sat down in the w/c and was wheeled back to his room and stayed in the w/c. Call light placed within reach. Gait Assessment Gait Gait Assistance Required: Contact Guard Assist Distance (Feet) 150 Able to Maintain Weight Bearing Status Yes During Gait Assistive Devices Assistive Device Gait Belt,Front Wheeled Walker Orthotic/Prosthetic Devices or Brace: No Gait Deviations General Gait Pattern Antalgic,Decreased Stride Length,Decreased Feet Clearance,Step-to Gait Factors Limiting Gait Function Factors Limiting Gait Function Decreased Activity Tolerance, Decreased Strength,Limited Range of Motion,Pain,Poor Balance,Poor Safety Awareness Comments Gait Comments See mobility comments. Stair Climbing Assessment Evaluation Level of Assist On Stairs Contact Guard Assistance Devices Stair Climbing Assistive Devices Straight Cane,Left Railing Technique/Endurance Stair Climbing Direction Ascend and Descend Stair Climbing Technique Step to Step Number of Steps Climbed 3 Stair Climbing Set # Repetitions (reps) 4 Comments Stair Climbing Comments See mobility comments. PT-Balance Assessment Sitting Balance and Reactions Static Sitting Balance Ability Good Dynamic Sitting Balance Ability Good Standing Balance and Reactions Static Standing Balance Ability Fair Dynamic Standing Balance Ability Fair Device Used FWW M5 PT-IP Objective Assessments Start: 04/18/20 15:31 Freq: NEEDED Status: Active Protocol: Document 04/18/20 14:40 AB (Rec: 04/18/20 15:43 AB [id number]) Orientation Orientation/Cognition Level of Alertness Alert Orientation Name,Age,Birthday,Month,Date, Year,Day of Week,Place, Situation Language Function Ability No Deficits Noted Safety Awareness Understands Safety Issues Memory Description No Deficits Noted Gross Range of Motion Lower Extremity ROM Impairments R knee flexion: ~ 50 deg R knee extension: 10 deg less to neutral Strength Lower Extremity Strength Assessment Right Impaired Hip 4-/5 Knee 3+/5 Coordination Assessment Gross Coordination Gross Coordination WNL Sensation Assessment Sensation Gross Sensation WNL Muscle Tone Muscle Tone WNL Yes M6 PT-IP Treatment Start: 04/18/20 15:31 Freq: NEEDED Status: Active Protocol: Document 04/20/20 14:34 DE (Rec: 04/20/20 15:18 CA [id number]) Physical Therapy Treatment Exercises Exercises Ankle Pumps,Gluteal Sets,Quad Sets,Heel Slides Education Education Provided Precautions,Weight Bearing Status,Post-Op Packet,Safety Other Treatments Other Treatment Performed Education for safe stair climbing was provided on using the gait belt, placing FWW at the top of the stairs in advance, and ascending with the LLE and descending with the RLE. M7 PT-IP Assessment and Plan Start: 04/18/20 15:31 Freq: NEEDED Status: Active Protocol: Document 04/20/20 14:34 DE (Rec: 04/20/20 15:18 CA [id number]) PT Summary Assessment and Plan Summary Impairments Pain,ROM,Strength,Balance,Bed Mobility,Transfers,Gait, Activity Tolerance Progress Towards Goals Safe For Discharge Assessment Summary Pt demonstrated some improvement in mobility and amb, requiring CGA and FWW for amb and CGA and SPC for stair climbing. Pt was able to perform stair climbing up and down 3 steps x2 with CGA and SPC. Pt's son will be there to help him get into the house as well. Pt stated he will stay downstairs and sleep on a recliner. Pt is safe for d/c home with assist from his and son. Pt will benefit from outpatient or PT to improve his knee ROM and strength as well as overall balance. Discharge Recommendations PT Discharge Recommendations Home with Assistance,Home Health,Outpatient PT Transportation Needs at Discharge Private Vehicle
--- NOTE | 2020-04-20 18:15 | PC.NURSE ---
LATE ENTRY: discharge instruction given by day shift RN. Pt is all ready and dressed. gave oxycodone 15mg for pain. pt escorted by DEHYDRATOR to ED exit via wheelchair.
== END 2020-04-20 17:45 | disposition home or self-care (01) ==
LOC: OR 16:13 → AC 16:13
PROVIDERS: Admitting Provider Orthopaedic Surgery; Referring Provider Orthopaedic Surgery; Visit Provider Orthopaedic Surgery
PROC: 0SRC0JZ Replacement of Right Knee Joint with Synthetic Substitute, Open Approach (ICD-10-PCS; CPT 27447; principal; 2020-04-18 07:45)
DX: M17.11 Unilateral primary osteoarthritis, right knee (principal); I10 Essential (primary) hypertension; G47.33 Obstructive sleep apnea (adult) (pediatric); K21.9 Gastro-esophageal reflux disease without esophagitis
CPT/HCPCS: 27447; 36415; 64450; 73560; 85014; 85018; 94760; 97110; 97116; 97161; 97530; C1776; G0378; C9290; J0690; J2250; J3010